=== PATIENT | female | born 1980 | race African-American/Black ===

== ENCOUNTER 2016-11-12 11:13 | Emergency (ER) | payer MEDICAID ==
[~2016-11-12] VITALS: Ht 154.9 cm; Wt 83.9 kg
[2016-11-12] MEDS ORDERED: predniSONE 10 MG TABLET PO ONE (11:30)
[2016-11-12] MEDS ORDERED: IPRATRPIUM/ALBUTEROL 0.5/2.5MG 3 ML NEBU. NEB ONE (11:30)
[2016-11-12] MEDS ORDERED: ALBUTEROL SULFATE 2.5 MG/3 ML NEBU. INH ONE (11:30)
[2016-11-12] MEDS ORDERED: FLUT1DIS5 IH (11:50)
[2016-11-12] MEDS ORDERED: ALBU2.5V14 NEB (11:50)
[2016-11-12] MEDS ORDERED: VENTOLIN HFA18 GM INH (11:50)
[2016-11-12] MEDS ORDERED: LORA0.5T PO (11:50)
[2016-11-12] MEDS ORDERED: ALBUTEROL SULFATE 2.5 MG/3 ML NEBU. CONT NEB ONE (13:00)
[2016-11-12] MEDS ORDERED: ALPRAZolam 0.5 MG TABLET PO ONE (13:00)
[2016-11-12 14:50] VITALS: BP 125/87
[2016-11-12] MEDS ORDERED: PRED50TA PO (15:07)
--- NOTE | 2016-11-12 15:07 | PHYS DOC ---
Past Medical History Past Medical History: Anxiety, Asthma Additional Past Surgical Histo: tubal Alcohol Use: Occasionally Additional Information: daily wine Drug Use: None Adult General Chief Complaint Chief Complaint: ASTHMA HPI HPI Patient is a 36 year old female who presents with asthma exacerbation. She reports onset of symptoms late last night associated with weather change/ thunderstorms. She states she has dry cough, wheezing, shortness of breath at rest. Denies fevers/chills, chest pain, lower extremity pain/swelling. History of severe asthma with numerous ED visits, ICU admits, intubated 7 times. She is staying with her family at [facility], is from [place] , brought inhaler which she has been using without relief but her nebulizer is at home. Nonsmoker. Review of Systems Review of Systems Constitutional: Denies fever or chills Eyes: Denies change in visual acuity HENT: Denies nasal congestion or sore throat Respiratory: Reports cough & shortness of breath Cardiovascular: Denies chest pain or edema GI: Denies abdominal pain, nausea, vomiting Musculoskeletal: Denies back pain or joint pain Integument: Denies rash Neurologic: Denies headache Current Medications Current Medications Current Medications Medications (Trade) Dose Ordered Sig/Rosi Start Time Stop Time Status Last Admin Dose Admin Albuterol Sulfate (Ventolin Neb Soln) 10 mg 1X ONCE 11/12/16 13:00 11/12/16 13:01 DC 11/12/16 12:48 10 MG Albuterol/ Ipratropium (Duoneb) 3 ml 1X ONCE 11/12/16 11:30 11/12/16 11:49 DC 11/12/16 11:36 3 ML Alprazolam (Xanax) 0.5 mg 1X ONCE 11/12/16 13:00 11/12/16 13:01 DC 11/12/16 12:48 0.5 MG Prednisone (Prednisone) 50 mg 1X ONCE 11/12/16 11:30 11/12/16 11:49 DC 11/12/16 11:55 50 MG Allergies Allergies Allergies Coded Allergies Type Severity Reaction Last Updated Verified niacin 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 HENT: Normocephalic, atraumatic, bilateral external ears normal, oropharynx moist, no tonsillar enlargement/exudate, nose normal. Eyes:conjunctiva normal, no discharge. Neck: supple, no stridor. Cardiovascular: RRR, no murmurs, no edema. Lungs & Thorax: tight throughout with expiratory wheezing, speaking in short sentences, increased work of breathing with mild distress. Abdomen: soft, nontender, nondistended. Skin: Warm, dry, no erythema, no rash. Back: No tenderness. Extremities: No tenderness, no edema. no calf tenderness or swelling. Neurologic: Alert and oriented X 3, no focal deficits noted. Psychologic: anxious Current Patient Data Vital Signs Vital Signs Date Time Temp Pulse Resp B/P (MAP) Pulse Ox O2 Delivery O2 Flow Rate FiO2 11/12/16 14:50 117 24 125/87 (100) 95 11/12/16 13:29 Aerosol Mask 11/12/16 11:20 98.2 98.2 EKG EKG [] Radiology/Procedures Radiology/Procedures [] Course & Med Decision Making Course & Med Decision Making Pertinent Labs and Imaging studies reviewed. (See chart for details) The patient presents with asthma exacerbation. Oxygen stable but she does have increased work of breathing & wheezing. Gave prednisone & albuterol, had persistent symptoms & wheezing. Gave hour long albuterol. On reassessment at end of treatment she is feeling much improved, no distress, speaking with less difficulty, wheezing still present but improved. She however has O2 sat of 88- 90% with good waveform. She wanted to go home due to improving symptoms. Had RN assist with walking desat road test. Persistent desats but she says she feels well. I recommended admission to the hospital for ongoing monitoring & treatment. She states her children are at [facility] & she needs to go back, refuses admission. She is A&Ox3, ambulates with steady gait, not suicidal. Discussed risks of leaving including worsening condition, undiagnosed condition, possibly . She still preferred to leave against medical advice. Gave prescription for prednisone. Follow up with PCP as soon as possible. Come back if she changes her mind, severe chest pain or shortness of breath, or any otherwise worsening condition. Discharged home in stable & improved condition, but against medical advice due to low oxygen saturation after treatment. [] Dragon Disclaimer Dragon Disclaimer This electronic medical record was generated, in whole or in part, using a voice recognition dictation system. Departure Departure Impression: Primary Impression: Asthma exacerbation Additional Impression: Hypoxia Disposition: AGAINST MEDICAL ADVICE Condition: STABLE Patient Instructions: Asthma, Adult, [id number] Additional Instructions: You were seen in the emergency department today for asthma exacerbation. Overall your symptoms improved by your oxygen level was low while at rest and while walking. We recommended admission to the hospital for further treatment. With your history of requiring mechanical ventilation for asthma. There is significant risk that you could get much worse. Risks of leaving rather than being admitted include worsening condition, undiagnosed condition, possibly . Take prednisone as prescribed, continue to use inhaler or nebulizer, follow-up with primary care physician on Monday. Return to the emergency department right away for worsening shortness of breath, chest pain, any otherwise worsening condition. Scripts Prednisone (PREDNISONE) 50 Mg Tablet 1 TAB PO DAILY, #5 TAB Prov: ZAIDA CARSON MD 11/12/16 Problem Qualifiers ZAIDA CARSON MD Nov 12, 2016 15:07
== END 2016-11-12 15:15 | disposition left against medical advice (07) ==
LOC: ER 11:13
DX: J45.901 Unspecified asthma with (acute) exacerbation (principal); R09.02 Hypoxemia; F41.9 Anxiety disorder, unspecified; Z88.8 Allergy status to other drugs, medicaments and biological substances; Z79.899 Other long term (current) drug therapy
CPT/HCPCS: 94250; 94644; 94760; 99285; J7512; J7620; 94640